=== PATIENT | male | born 1985 | race Caucasian/White ===

== ENCOUNTER 2019-10-23 11:51 | Emergency (ER) | payer SELFPAY | END 2019-10-23 12:59 | disposition home or self-care (01) | LOC: ERS 11:51 | DX: S61.230A Puncture wound without foreign body of right index finger without damage to nail, initial encounter (principal); W26.8XXA Contact with other sharp object(s), not elsewhere classified, initial encounter | CPT/HCPCS: 99281 ==

== ENCOUNTER 2021-09-30 07:57 | Outpatient (CLI) | payer BC, OTHER | END 2021-09-30 07:58 | disposition home or self-care (01) | LOC: RAD-FRANK 07:57 | PROVIDERS: ATTEND Nurse Practitioner Family | DX: M25.511 Pain in right shoulder (principal) ==